=== PATIENT | female | born 1960 | race Caucasian/White ===

== ENCOUNTER → 2019-06-16 | Outpatient (CLI) | payer BC ==
[2019-06-16 12:33] LABS: Basophils % (A) 1 %; Eosinophils # (A) 0.1 k/uL (0-0.7); Eosinophils % (A) 1 %; HCT 35.1 % (34.0-46.0); HGB 11.1 gm/dL (11.4-16.0); Lymphocytes # (A) 0.7 k/uL (1.0-4.8); Lymphocytes % (A) 18 %; MCH 29.1 pg (25.0-35.0); MCHC 31.7 g/dL (31.0-37.0); MCV 91.9 fL (80.0-100.0); Mean Platelet Volume 6.8; Monocytes # (A) 0.3 k/uL (0-1.0); Monocytes % (A) 8 %; Neutrophils # (A) 2.7 k/uL (1.3-7.7); Neutrophils % (A) 69 %; Platelet Count 183 k/uL (150-450); RBC 3.82 m/uL (3.80-5.40); RDW 12.5 % (11.5-15.5); WBC 3.9 k/uL (3.8-10.6)
[2019-06-16 12:42] LABS: Potassium 5.2 mmol/L (3.5-5.1)
== END | disposition home or self-care (01) ==
LOC: LABPAT 11:27
PROVIDERS: ATTEND Orthopaedic Surgery
DX: Z01.818 Encounter for other preprocedural examination (principal); Z01.812 Encounter for preprocedural laboratory examination; M23.92 Unspecified internal derangement of left knee
CPT/HCPCS: 80051; 85025; 93005

== ENCOUNTER 2019-07-17 11:58 | Day surgery (SDC) | payer BC ==
[2019-07-14 15:47] VITALS: BMI 22.8
--- NOTE | 2019-07-16 20:40 | HP ---
HISTORY AND PHYSICAL DATE OF SURGERY: 07/17/2019 Susy Delgado is a 58-year-old patient seen with progressive left knee pain. Options for treatment were discussed. She elected to proceed with arthroscopy. Consent was obtained. PAST MEDICAL HISTORY: Her past medical history is hypertension and hyperlipidemia. PAST SURGICAL HISTORY: 1. Herniorrhaphy. 2. Liver transplant. 3. Lumbar laminectomy. DAILY MEDICATIONS: 1. Lipitor. 2. Lisinopril. 3. Rapamune. ALLERGIES: KEFLEX. SOCIAL HISTORY: She denies current tobacco use. PHYSICAL EVALUATION OF THE LEFT KNEE: Her range of motion is negative 7 to 130. There is a moderate effusion. Tenderness, medial joint line. Positive medial Ashleigh's. Plus one/two Artur. Collateral ligaments are stable. Distal neurovascular exam is intact. RADIOGRAPHS: Left knee radiographs revealed mild osteoarthritis. MRI of the left knee reveals medial meniscal tear, joint effusion, possible partial ACL tear. IMPRESSION: 1. Internal derangement of left knee with medial meniscal tear and possible partial ACL tear. 2. Hypertension. 3. Hyperlipidemia. PLAN: Left knee arthroscopy with partial meniscectomy and debridement. MMODL / IJN: [id number] /
[~2019-07-17 11:58] MED LIST: DEXAMETHASONE SOD PHOSPHATE 10 MG/ML 1 ML VIAL IV ONE; HYDROmorphone 0.5 MG/0.5 ML SYRINGE IVP PRN; LIDOCAINE 1% 20 ML VIAL (10MG/ML) FOR IV START INTRADERMA PRN; MIDAZOLAM 2 MG/2 ML VIAL IV PRN; ONDANSETRON 4 MG/2 ML VIAL IVP ONE; SCOPOLAMINE 1.5MG/72HR PATCH TRANSDERM ONE
[2019-07-17] MEDS: LACTATED RINGERS 1,000 ML IV SCH ×2 (12:40→12:55)
[2019-07-17 12:41] LABS: Glucose,Whole Blood 83 mg/dL (75-99)
[2019-07-17] MEDS ORDERED: BUPIVACAINE (PF) 0.25% 30 ML VIAL INTRAARTIC ONE ×2 (12:49→13:30)
[2019-07-17] MEDS ORDERED: fentaNYL (PF) 50 MCG/ML 2 ML AMP ONE (12:51)
[2019-07-17] MEDS ORDERED: LIDOCAINE 1% INJ 10MG/ML (20 ML MDV) ONE (12:51)
[2019-07-17] MEDS ORDERED: PROPOFOL 10 MG/ML 20 ML VIAL IV ONE (12:51)
[2019-07-17] MEDS ORDERED: LABETALOL 5 MG/ML VIAL MDV ONE (12:51)
[2019-07-17] MEDS ORDERED: methylPREDNISolone SOD SUCCI 125 MG/2 ML VIAL ONE (12:51)
[2019-07-17] MEDS ORDERED: NEOSTIGMINE 1 MG/ML 10 ML VIAL ONE (12:51)
[2019-07-17] MEDS ORDERED: MIDAZOLAM 2 MG/2 ML VIAL ONE (12:51)
[2019-07-17] MEDS ORDERED: diphenhydrAMINE 50 MG/ML 1 ML VIAL ONE (12:51)
[2019-07-17] MEDS ORDERED: ROCURONIUM BROMIDE 10 MG/ML 10 ML VIAL IV ONE (12:51)
[2019-07-17] MEDS ORDERED: GLYCOPYRROLATE 0.2 MG/ML 2 ML VIAL ONE (12:51)
[2019-07-17 13:46] VITALS: TEMP 97.8
--- NOTE | 2019-07-17 13:50 | P.OP ---
Date of Procedure: 07/17/19 Preoperative Diagnosis: Internal derangement left knee Postoperative Diagnosis: 1. Medial meniscal tear left knee 2. Reactive synovitis medial, lateral and suprapatellar compartments left knee Procedure(s) Performed: 1. Arthroscopic partial medial meniscectomy left knee 2. Arthroscopic partial synovectomy medial, lateral and suprapatellar compartments left knee Anesthesia: BRIGIDA, local Surgeon: Ventura Reyna Estimated Blood Loss (ml): 10 Pathology: none sent Condition: stable Disposition: PACU Indications for Procedure: 58-year-old patient seen with progressive left knee pain. After treatment options were discussed, she elected to proceed with arthroscopy. Operative Findings: See description of procedure Description of Procedure: Patient was taken to the operative suite. Patient underwent a general anestheti c by the department of anesthesia. Patient was given preoperative antibiotics. The left lower extremity was placed in a well-padded arthroscopic leg amxwell. The left leg was prepped and draped in the normal sterile orthopedic fashion. A lateral parapatellar and suprapatellar incision was made. Trochars were inserted. Arthroscopy was initiated. Suprapatellar pouch revealed diffuse thick reactive synovitis. The patellofemoral joint appeared to articulate congruently. There was grade 1 chondromalacia with no osteochondral tears present. The scope was guided into the medial gutter. No loose bodies or plica were identified. The scope was then guided into the medial compartment. A medial parapatellar incision was made. Trocar inserted followed by probe. There was a bucket-handle tear medial meniscus. Grade 1/2 chondromalacia changes of the medial femoral condyle. There was thick reactive synovitis anteriorly. I performed a partial medial meniscectomy. I performed a partial synovectomy decompressing the reactive synovitis. The residual meniscus was stable. There was good decompression of the synovitis. Scope and probe were then guided into the intercondylar notch. Cruciates were identified, probed and found to be stable. The scope and probe were then guided into lateral compartment. Lateral meniscus was probed and found to be stable. There was some reactive synovitis anteriorly. No loose bodies. No significant chondromalacia. I introduced a motorized shaver and performed a partial synovectomy. There was good decompression of the synovitis. The scope was in guided back into the suprapatellar compartment. I introduced a motorized shaver into the suprapatellar compartment. I debrided some piecemeal fragments of meniscus I encountered. I performed a partial synovectomy. The shaver was removed. There was good decompression of the synovitis. I took more look on the entire knee, no residual debris. Instruments were now removed from the joint. The joint was infiltrated with .25% Marcaine. Steri-Strips were applied to the portal sites. Sterile dressings were applied. The patient was placed into a BRENT hose. No tourniquet was utilized. The patient was awakened, transferred to a bed and taken to recovery stable satisfactory condition.
[2019-07-17] MEDS ORDERED: ONDANSETRON 4 MG/2 ML VIAL IVP ONE (14:06)
[2019-07-17] MEDS ORDERED: hydrALAZINE HCL 20 MG/ML 1 ML VIAL IVP ONE (14:15)
[2019-07-17] MEDS ORDERED: LORazepam 2 MG/ML INJ IV ONE (14:45)
[2019-07-17] MEDS ORDERED: LACTATED RINGERS 1,000 ML IV ONE (15:02)
[2019-07-17 15:09] VITALS: RESP 16
[2019-07-17 16:02] VITALS: BP 169/81; PULSE 77
== END 2019-07-17 16:30 | disposition home or self-care (01) ==
LOC: OR 11:58
PROVIDERS: ATTEND Orthopaedic Surgery
DX: S83.242A Other tear of medial meniscus, current injury, left knee, initial encounter (principal); X58.XXXA Exposure to other specified factors, initial encounter; M65.862 Other synovitis and tenosynovitis, left lower leg; M94.262 Chondromalacia, left knee; I12.0 Hypertensive chronic kidney disease with stage 5 chronic kidney disease or end stage renal disease; N18.5 Chronic kidney disease, stage 5; E78.5 Hyperlipidemia, unspecified; M19.90 Unspecified osteoarthritis, unspecified site; Z90.710 Acquired absence of both cervix and uterus; Z94.4 Liver transplant status; Z79.899 Other long term (current) drug therapy; Z79.52 Long term (current) use of systemic steroids; Z88.1 Allergy status to other antibiotic agents
CPT/HCPCS: 84132; 29881; 29876; J2250; J2060; J0360; J1200; J1100; J2710; J2930; J2405; J0690; J2001; J3010; J2704